=== PATIENT | female | born 1955 | race Caucasian/White ===

== ENCOUNTER 2016-06-15 15:20 | Outpatient (CLI) | payer BC ==
--- NOTE | 2016-06-15 16:25 | DIAGNOSTIC IMAGING REPORT ---
PROCEDURE: XR WRIST MIN 3 VIEWS - LEFT INDICATION: CRONIC NONMALIGNANT PX,ARTHRITIS,FIBROMYALGIA TECHNIQUE: Four views of the left wrist. COMPARISON: None. FINDINGS: There is osteoarthritis involving the first carpal metacarpal joint. No fractures. Normal osseous alignment. No suspicious soft-tissue calcification or radiodense foreign bodies. IMPRESSION: 1. Osteoarthritis at the base of the thumb.
== END 2016-06-15 23:00 ==
LOC: XR SRH 15:20
DX: M18.12 Unilateral primary osteoarthritis of first carpometacarpal joint, left hand (principal); M79.7 Fibromyalgia

== ENCOUNTER → 2016-07-01 | Outpatient (CLI) | payer BC ==
--- NOTE | 2016-07-01 11:22 | DIAGNOSTIC IMAGING REPORT ---
PROCEDURE: DEXA BONE DENSITY STUDY CLINICAL INDICATION: SCREENING COMPARISON: None. FINDINGS: LUMBAR SPINE: Bone mineral density 0.807 g/cm2, T score -2.2 osteopenia LEFT HIP: Bone mineral density 0.738 g/cm2, T score -1.7 osteopenia LEFT FEMORAL NECK: Bone mineral density 0.570 g/cm2, T score -2.5 osteoporosis FRACTURE RISK CALCULATION ( when applicable): 10-year fracture risk of a major osteoporotic fracture and of a hip fracture not reported because some T-score at or below -2.5 (T score greater or equal to -1.0 to: NORMAL) (T score from -1.1 to -2.4: OSTEOPENIA) (T score ess than or equal to -2.5: OSTEOPOROSIS) IMPRESSION: 1. Hip and spine osteopenia, osteoporosis femoral neck.
--- NOTE | 2016-07-01 11:29 | DIAGNOSTIC IMAGING REPORT ---
PROCEDURE: XR CHEST 2 VIEW INDICATION: COUGH TECHNIQUE: PA and lateral views. COMPARISON: None FINDINGS: Lungs are clear and hyperexpanded. Heart and mediastinum are normal. Thorax is normal. IMPRESSION: 1. COPD. No acute disease.
--- NOTE | 2016-07-01 11:32 | DIAGNOSTIC IMAGING REPORT ---
PROCEDURE: MG BILATERAL SCREENING W/CAD INDICATION: Screening, family history of sister with breast cancer at age 57. TECHNIQUE: Standard CC and MLO views bilaterally. Computer aided detection was used. COMPARISON: 04/21/2013, 06/27/2010, 08/31/2008 FINDINGS: Moderately dense fibroglandular tissue is present bilaterally. No developing densities, areas of architectural distortion, or suspicious microcalcifications. IMPRESSION: 1. Stable mammograms without radiographic evidence of malignancy. RESULT CODE: 1- Negative. A. A negative report should not delay biopsy if a dominant or clinically suspicious mass is present. 10-15% of cancers are not identified by x-ray. B. A negative report may reinforce clinical impression. C. Adenosis and dense breasts may obscure an underlying neoplasm. D. False positive reports average 6-10%. E.. A yearly screening mammogram is recommended. A reminder letter will be scheduled.
== END ==
LOC: XR SRH 10:36 → MAM SRH 11:30
DX: J44.9 Chronic obstructive pulmonary disease, unspecified (principal); M85.88 Other specified disorders of bone density and structure, other site; Z12.31 Encounter for screening mammogram for malignant neoplasm of breast